=== PATIENT | female | born 1970 | race Caucasian/White ===

== ENCOUNTER 2020-04-24 07:11 | Emergency (ER) | payer OTHER ==
[~2020-04-24] VITALS: Ht 160 cm; Wt 81.0 kg
[2020-04-24] MEDS ORDERED: IV NORMAL SALINE 1,000ML 1,000 ML IV ONE (07:30)
[2020-04-24] MEDS ORDERED: KETOROLAC 30 MG/ML VIAL. IVP ONE (07:30)
--- NOTE | 2020-04-24 07:41 | PHYS DOC ---
Past History Past Medical History: Other Additional Past Medical Histor: LOW IRON Past Surgical History: Gastric Bypass, Other Additional Past Surgical Histo: HERNIA REPAIR Alcohol Use: Rarely General Adult EDM: Chief Complaint: ABDOMINAL PAIN HPI: HPI: 49-year-old female presents with right lower quadrant abdominal pain. The patient states that this pain started out as a mild cramping sensation similar to her menses 12 days ago. She is always had more cramping pain when she ovulates from the right side. This pain has continued every day since then. The patient has had decreased menstrual cycles due to IUD placement. She does have a known ovarian cyst on the right. Patient admits to more sexual activity recently and wants to make sure she is not though she thinks it is highly unlikely. Over the last 3 days, the pain has increased more. Is now a sharp sensation of moderate intensity. She cannot sleep laying on that side. She denies nausea, vomiting, fever, chills, diarrhea, constipation. No urinary symptoms. No history of kidney stones. She has had gastric bypass and a ventral hernia repair. Review of Systems: Review of Systems: Constitutional: Denies fever or chills Eyes: Denies change in visual acuity HENT: Denies nasal congestion or sore throat Respiratory: Denies cough or shortness of breath Cardiovascular: Denies chest pain or edema GI: Right lower quadrant abdominal pain. Denies nausea, vomiting, bloody stools or diarrhea : Denies dysuria Musculoskeletal: Denies back pain or joint pain Integument: Denies rash Neurologic: Denies headache, focal weakness or sensory changes Endocrine: Denies polyuria or polydipsia Lymphatic: Denies swollen glands Psychiatric: Denies depression or anxiety Heart Score: Risk Factors: Risk Factors: DM, Current or recent (<one month) smoker, HTN, HLP, family history of CAD, obesity. Risk Scores: Score 0 - 3: 2.5% MACE over next 6 weeks - Discharge Home Score 4 - 6: 20.3% MACE over next 6 weeks - Admit for Clinical Observation Score 7 - 10: 72.7% MACE over next 6 weeks - Early Invasive Strategies Current Medications: Current Meds: Current Medications Medications (Trade) Dose Ordered Sig/Jethro Start Time Stop Time Status Last Admin Dose Admin Iohexol (Omnipaque 300 Mg/ml) 75 ml 1X ONCE 5/30/20 07:45 04/24/20 07:46 Ketorolac Tromethamine (Toradol 30mg Vial) 30 mg 1X ONCE 04/24/20 07:30 04/24/20 07:34 DC Sodium Chloride 1,000 ml @ 1,000 mls/hr 1X ONCE 04/24/20 07:30 04/24/20 08:29 Allergies: Allergies: Allergies Coded Allergies Type Severity Reaction Last Updated Verified No Known Drug Allergies 04/24/20 No Physical Exam: PE: Constitutional: Well developed, obese, well nourished, no acute distress, non- toxic appearance. [] HENT: Normocephalic, atraumatic, bilateral external ears normal, oropharynx moist, no oral exudates, nose normal. [] Eyes: PERRLA, EOMI, conjunctiva normal, no discharge. [] Neck: Normal range of motion, no tenderness, supple, no stridor. [] Cardiovascular: Heart rate regular rhythm, no murmur [] Lungs & Thorax: Bilateral breath sounds clear to auscultation [] Abdomen: Bowel sounds normal, soft, mild RLQ tenderness without guarding or rebound, no masses, no pulsatile masses. [] Skin: Warm, dry, no erythema, no rash. [] Back: No tenderness, no CVA tenderness. [] Extremities: No tenderness, no cyanosis, no clubbing, ROM intact, no edema. [] Neurologic: Alert and oriented X 3, normal motor function, normal sensory function, no focal deficits noted. [] Psychologic: Affect normal, judgement normal, mood normal. [] Current Patient Data: Vital Signs: Vital Signs Date Time Temp Pulse Resp B/P (MAP) Pulse Ox O2 Delivery O2 Flow Rate FiO2 04/24/20 07:20 97.3 70 18 159/95 (116) 99 Room Air EKG: EKG: [] Radiology/Procedures: Radiology/Procedures: [] Impressions: CT ABD PELV W/ IV CONTRST ONLY History: Reason: RLQ abdominal pain Technique: After the administration of intravenous contrast, CT imaging was performed of the abdomen and pelvis. Multiplanar images are reviewed. Exposure: One or more of the following individualized dose reduction techniques were utilized for this examination: 1. Automated exposure control 2. Adjustment of the mA and/or kV according to patient size 3. Use of iterative reconstruction technique. Comparison: None Findings: Lower chest: No consolidation or pleural effusion. Abdomen and pelvis: The liver, spleen, adrenal glands, pancreas and gallbladder are unremarkable. No biliary ductal dilatation. Normal appearance of the kidneys. No hydronephrosis. 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 No occlusion. The duodenum is involved in the swirling. No evidence of bowel obstruction. Postoperative changes gastric bypass. Normal appendix. Small mesenteric lymph nodes. No pathologically enlarged lymph nodes. No ascites. IUD noted within the uterus. Mild atheromatous plaque throughout the nonaneurysmal abdominal aorta and branch vessels. Bones: Multilevel lumbar spondylosis most prominent L4-L5. Mild to moderate canal narrowing L4-L5. Impression: 1. 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 No occlusion. No evidence of bowel obstruction. 2. Postop changes gastric bypass. Electronically signed by: Vin Echavarria DO (04/24/2020 8:54 AM) [id number] DICTATED AND SIGNED BY: VIN ECHAVARRIA DO DATE: 04/24/20 0854 CC: LIZ POLLACK DO; PCP,NO ~ Course & Med Decision Making: Course & Med Decision Making Pertinent Labs and Imaging studies reviewed. (See chart for details) The patient's labs are unremarkable. Her CT of the abdomen pelvis shows superior mesenteric vein narrowing and swirling of the mesentery. No obstruction is seen. The appendix is normal. See official report for more details. If this is the cause of the patient's right lower quadrant discomfort, but certainly could cause abdominal discomfort. I believe she should seek a surgical consult. She does not meet criteria for emergent consult or admission. She is stable for discharge at this time. [] Dragon Disclaimer: Dragsanta Disclaimer: This electronic medical record was generated, in whole or in part, using a voice recognition dictation system. Departure Departure: Impression: Primary Impression: Injury of superior mesenteric vein Qualified Codes: S35.339A - Unspecified injury of superior mesenteric vein, initial encounter Additional Impression: Abdominal pain, right lower quadrant Disposition: 01 HOME/RESIDENCE PRIOR TO ADM Condition: STABLE Referrals: PCPGAMALIEL (PCP) LIZ POLLACK DO April 24, 2020 07:41
[2020-04-24] MEDS ORDERED: IOHEXOL 300 MG/ML 75 ML VIAL. IV ONE (07:45)
[2020-04-24 08:08] LABS: BASO # 0.1 x10^3/uL (0.0-0.2); BASO % 2 % (0-3); EOS # 0.2 x10^3/uL (0.0-0.7); EOS % 5 % (0-3); HEMATOCRIT 40.9 % (36.0-47.0); HEMOGLOBIN 13.8 g/dL (12.0-15.5); LYMPH # 1.6 x10^3/uL (1.0-4.8); LYMPH % 38 % (24-48); MEAN CORPUSCULAR HEMOGLOBIN 33 pg (25-35); MEAN CORPUSCULAR HGB CONC 34 g/dL (31-37); MEAN CORPUSCULAR VOLUME 97 fL (79-100); MONO # 0.4 x10^3/uL (0.0-1.1); MONO % 10 % (0-9); NEUT % 45 % (31-73); PLATELET COUNT 209 x10^3/uL (140-400); RED BLOOD COUNT 4.24 x10^6/uL (3.50-5.40); RED CELL DISTRIBUTION WIDTH 14.9 % (11.5-14.5); WHITE BLOOD COUNT 4.3 x10^3/uL (4.0-11.0)
[2020-04-24 08:09] LABS: CALCIUM 8.6 mg/dL (8.5-10.1); CREATININE 0.6 mg/dL (0.6-1.0); GFR 106.3; POTASSIUM 3.8 mmol/L (3.5-5.1)
[2020-04-24 08:15] LABS: ALBUMIN 3.8 g/dL (3.4-5.0); ALBUMIN/GLOBULIN RATIO 1.1 (1.0-1.7); TOTAL BILIRUBIN 0.3 mg/dL (0.2-1.0); TOTAL PROTEIN 7.4 g/dL (6.4-8.2)
[2020-04-24 08:18] LABS: U PREG PATIENT NEGATIVE (NEG)
[2020-04-24 08:25] LABS: BACTERIA,URINE 0 /HPF (0-FEW); BILIRUBIN,URINE NEG (NEG); CLARITY,URINE HAZY; COLOR,URINE YELLOW; GLUCOSE,URINE NEG (NEG); NITRITE,URINE NEG (NEG); SQUAMOUS EPITHELIAL CELL,UR MOD /LPF; UROBILINOGEN,URINE 0.2 mg/dL (0.2 mg/dL)
--- NOTE | 2020-04-24 08:57 | RAD ---
CT ABD PELV W/ IV CONTRST ONLY History: Reason: RLQ abdominal pain Technique: After the administration of intravenous contrast, CT imaging was performed of the abdomen and pelvis. Multiplanar images are reviewed. Exposure: One or more of the following individualized dose reduction techniques were utilized for this examination: 1. Automated exposure control 2. Adjustment of the mA and/or kV according to patient size 3. Use of iterative reconstruction technique. Comparison: None Findings: Lower chest: No consolidation or pleural effusion. Abdomen and pelvis: The liver, spleen, adrenal glands, pancreas and gallbladder are unremarkable. No biliary ductal dilatation. Normal appearance of the kidneys. No hydronephrosis. 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 No occlusion. The duodenum is involved in the swirling. No evidence of bowel obstruction. Postoperative changes gastric bypass. Normal appendix. Small mesenteric lymph nodes. No pathologically enlarged lymph nodes. No ascites. IUD noted within the uterus. Mild atheromatous plaque throughout the nonaneurysmal abdominal aorta and branch vessels. Bones: Multilevel lumbar spondylosis most prominent L4-L5. Mild to moderate canal narrowing L4-L5. Impression: 1. 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 No occlusion. No evidence of bowel obstruction. 2. Postop changes gastric bypass. Electronically signed by: Vin Saha DO (04/24/2020 8:54 AM) [id number]
[2020-04-24 09:50] VITALS: BP 141/87
== END 2020-04-24 10:00 | disposition home or self-care (01) ==
LOC: ER 07:11
DX: S35.3 Injury of portal or splenic vein and branches (principal); R10.31 Right lower quadrant pain; Z98.84 Bariatric surgery status; X58.XXXA Exposure to other specified factors, initial encounter; Y93.89 Activity, other specified; Y92.89 Other specified places as the place of occurrence of the external cause; Y99.8 Other external cause status
CPT/HCPCS: 36415; 74177; 80053; 81001; 81025; 85025; 96374; 99285; J1885; J7030